=== PATIENT | female | born 1965 | race Caucasian/White ===

== ENCOUNTER → 2016-08-24 | Outpatient (CLI) | payer BC | END | disposition disaster alternative care site (69) | LOC: GRAD 08-21 10:00 | DX: E07.89 Other specified disorders of thyroid (principal); E04.2 Nontoxic multinodular goiter ==

== ENCOUNTER → 2016-09-04 | Day surgery (SDC) | payer BC | LOC: GEND 08-28 08:00 → GPOC 08-28 08:00 → GEND 07:28 | PROC: 0DJD8ZZ Inspection of Lower Intestinal Tract, Via Natural or Artificial Opening Endoscopic (ICD-10-PCS; principal; 2016-09-04) | DX: Z12.11 Encounter for screening for malignant neoplasm of colon (principal); N39.0 Urinary tract infection, site not specified; E04.2 Nontoxic multinodular goiter; K21.9 Gastro-esophageal reflux disease without esophagitis | CPT/HCPCS: J2001; J7030 ==